=== PATIENT | female | born 1955 | race Caucasian/White ===

== ENCOUNTER 2016-07-25 07:48 | Emergency (ER) | payer OTHER ==
[~2016-07-25] VITALS: Ht 160 cm; Wt 92.1 kg
--- NOTE | 2016-07-25 08:09 | ED HAND/WRIST INJURY COMPLAINT ---
History of Present Illness General Chief Complaint: Hand or Wrist Injury Stated Complaint: LEFT WRIST PAIN S/P FALL Source: patient, family Exam Limitations: no limitations Vital Signs & Intake/Output Vital Signs & Intake/Output Vital Signs Date Time Temp Pulse Resp B/P B/P Pulse O2 O2 Flow FiO2 Mean Ox Delivery Rate 07/25 1135 98 07/25 1058 97.0 84 18 136/66 100 Room Air 07/25 0909 94 144/90 07/25 0904 97.2 82 18 132/77 99 Nasal 4.0L Cannula 07/25 0753 98.0 97 20 109/76 100 Room Air Allergies Coded Allergies: Penicillins (RASH 07/25/16) Sulfa (Sulfonamide Antibiotics) (RASH 07/25/16) Reconcile Medications Ibuprofen 800 MG TABLET 1 TAB PO TID PRN PAIN Lamotrigine 100 MG TABLET 1 TAB PO BID MENTAL HEALTH (Reported) Levothyroxine Sodium (Unknown Strength) TABLET (Unknown Dose) PO DAILY THYROID (Reported) Lisdexamfetamine Dimesylate (Vyvanse) 30 MG CAPSULE 1 CAP PO QAM MENTAL HEALTH (Reported) Lovastatin (Unknown Strength) TABLET (Unknown Dose) PO DAILY CHOLESTEROL ( Reported) Oxycodone HCl/Acetaminophen (Percocet 5-325 MG Tablet) 5 MG-325 MG TABLET 1 TAB PO Q4-6 PRN BREAKTHROUGH PAIN Zolpidem Tartrate (Ambien) 5 MG TABLET 1 TAB PO QPM SLEEP (Reported) Triage Note: PT TO ED C/O LEFT WRIST PAIN S/P TRIP AND FALL AUDIO/VIDEO ENGINEER. STATES SHE WAS MOVING A TREADMILL AND FELL BACKWARDS, HITTING HER PALM ON THE GROUND. DENIES HEADSTRIKE. PT APPEARS VERY ANXIOUS. DECLINING MEDS IN TRIAGE. +CMS, +PULSES. ICE APPLIED. Triage Nurses Notes Reviewed? yes Occurred: just prior to arrival Timing: single episode today Injury Environment: home Severity: severe Pain/Injury Location: Left: Wrist. Method of Injury: fall Modifying Factors: Worsens With: movement. Associated Symptoms: swelling HPI: 60-year-old female history of hypothyroidism sudden onset of left wrist pain after trip and fall at 7:30 this morning. No head trauma or loss of consciousness. Patient claims of severe left wrist pain. Patient noted to have visible deformity. Past History Travel History Traveled to [place] past 21 day No Medical History Any Pertinent Medical History? see below for history Gastrointestinal: GERD Psychiatric: anxiety Endocrine: Ulysses's thyroiditis, hypothyroidism Surgical History Surgical History: non-contributory Psychosocial History What is your primary language Arabic Tobacco Use: Quit >30 days ago ETOH Use: denies use Illicit Drug Use: denies illicit drug use Family History Hx Contributory? No Review of Systems Review of Systems Constitutional: Denies: chills, fever. EENTM: Reports: no symptoms. Respiratory: Denies: cough, short of breath. Cardiovascular: Denies: chest pain, palpitations. GI: Reports: no symptoms. Genitourinary: Reports: no symptoms. Musculoskeletal: Reports: joint pain, joint swelling. Denies: muscle pain, muscle stiffness. Skin: Reports: no symptoms. Neurological/Psychological: Reports: no symptoms. Hematologic/Endocrine: Denies: bruising, bleeding. Immunologic/Allergic: Reports: no symptoms. All Other Systems: Reviewed and Negative Physical Exam Physical Exam General Appearance: well developed/nourished, alert, awake, anxious, mild distress Head: atraumatic Eyes: Bilateral: PERRL, EOMI. Ears, Nose, Throat: normal pharynx, normal ENT inspection, hearing grossly normal Neck: normal inspection, supple Cardiovascular/Respiratory: normal breath sounds, regular rate/rhythm Back: normal inspection Shoulder Left: normal range of motion, normal inspection Shoulder Right: normal range of motion, normal inspection Elbow Left: normal range of motion, normal inspection Elbow Right: normal range of motion, normal inspection Forearm Right: normal range of motion, normal inspection Wrist Left: swelling, tenderness, DEFORMITY Wrist Right: normal range of motion, normal inspection Hand Left: normal inspection, normal range of motion Hand Right: normal inspection, normal range of motion Neurologic/Tendon: normal sensation, normal tendon functions, responds to pain Skin: intact, normal color, warm/dry Lymphatic: no anterior cervical nii Progress Differential Diagnosis: DISTAL ULNA/RADIUS FRACTURE Plan of Care: Orders Procedure Date/time Status Durable Medical Equipment 07/25 909 Active Current Medications Sig/Elijah Start time Last Medication Dose Stop Time Status Admin Insulin Human Regular 6 UNITS ONCE ONE 07/25 111 CAN (NovoLIN R) 07/25 1116 9:50 AM Patient tolerated reduction well. She is now awake alert and oriented. Reduction x-rays pending. Patient much improved. Still complains of moderate amount of pain. Motrin and Percocet ordered. Repeat x-rays pending. X-rays given on disc to the patient to follow-up with her own private doctor. Good neurovascular examination. Rajendra wrap was taken down and rewrap this patient felt slightly tight her fingers. Per prescription and sent to [place] [facility]. (KELVIN CALDERA,OMAR) Diagnostic Imaging: Viewed by Me: Radiology Read. Discussed w/RAD: Radiology Read. Radiology Impression: PATIENT: MARICEL TAVERAS PRESENT AGE: 60 PATIENT ACCOUNT NO: [id number] : 54 LOCATION: [facility] ORDERING PHYSICIAN: OMAR WARREN MD SERVICE DATE: 07/25/16 EXAM TYPE: RAD - XRY-WRIST COMPLETE-LEFT EXAMINATION: XR WRIST, LEFT CLINICAL INFORMATION: Left wrist/distal forearm deformity status post fall COMPARISON: None TECHNIQUE: AP, lateral, and oblique views of the left wrist. FINDINGS: There is a comminuted, impacted, intra-articular distal radial fracture with dorsal tilt of the distal radial articular surface and dorsal displacement and foreshortening of the fracture fragments by 1.4 cm. The styloid process is fractured at its base with distraction/medial displacement by 0.5 cm. There is posttraumatic ulnar positive variance. 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 Soft tissues are swollen. IMPRESSION: Comminuted, dorsally impacted, intra-articular distal radial fracture Displaced fracture through the base of the ulnar styloid DICTATED BY: DARIUS NAZARIO MD DATE/TIME DICTATED:07/25/16837 ADMINISTRATIVE VOLUNTEER:DELMY DATE/TIME TRANSCRIBED:07/25/16837 CONFIDENTIAL, DO NOT COPY WITHOUT APPROPRIATE AUTHORIZATION. <Electronically signed in Other Vendor System> SIGNED BY: DARIUS NAZARIO MD 07/25/16843, PATIENT: MARICEL TAVERAS PRESENT AGE: 60 PATIENT ACCOUNT NO: [id number] : 54 LOCATION: [facility] ORDERING PHYSICIAN: OMAR WARREN MD SERVICE DATE: 07/25/16 EXAM TYPE: RAD - XRY-ELBOW AP & LATERAL , LEFT; XRY-SHOULDER COMPLETE-LEFT; XRY-WRIST 2 VIEWS LEFT EXAMINATION: XR SHOULDER, LEFT XR ELBOW, LEFT XR WRIST, LEFT CLINICAL INFORMATION: Status post fall. Rule out shoulder and elbow fracture. Status post reduction of the left wrist fracture. COMPARISON: Wrist radiographs from the same date at 8:13 AM TECHNIQUE: Three views of the left shoulder. AP, lateral, and oblique views of the left wrist. AP, lateral, and both oblique views of the left elbow FINDINGS: Left shoulder: There is mild acromioclavicular and glenohumeral osteoarthritis. No fracture. Alignment is anatomic. Soft tissues are normal with no abnormal calcifications. Bones are osteopenic. Left elbow: Fiberglass splint material is in place. No fracture or malalignment. Small marginal osteophytes are present at the elbow. No joint effusion. Bones are osteopenic. Soft tissues are unremarkable. Left wrist: There is improved alignment of the comminuted intra- articular distal radial fracture with decreased dorsal impaction of the fracture fragments, now with 0.8 cm of foreshortening. There is persistent dorsal tilt of the distal articular fracture fragments as well as ulnar positive variance. Transitional fractures of the ulnar styloid base is unchanged. Moderate degenerative arthritis is again seen at the first CMC joint. Splint material is in place. IMPRESSION: 1. No fracture or malalignment of the left shoulder and left elbow. 2. Improved alignment of the comminuted intra-articular distal radial fracture with persistent dorsal tilt of the distal articular surface as well as foreshortening and dorsal displacement of the distal fracture fragments. 3. Unchanged transverse fracture of the ulnar styloid base. DICTATED BY: DARIUS NAZARIO MD DATE/TIME DICTATED:07/25/161107 ADMINISTRATIVE VOLUNTEER:DELMY DATE/TIME TRANSCRIBED:07/25/161107 CONFIDENTIAL, DO NOT COPY WITHOUT APPROPRIATE AUTHORIZATION. <Electronically signed in Other Vendor System> SIGNED BY: DARIUS NAZARIO MD 07/25/16 1116 Rhythm Strip: normal sinus rhythm Departure Departure Disposition: HOME OR SELF CARE Condition: Stable Clinical Impression Primary Impression: Radius and ulna distal fracture Referrals: ANDREW CALDERA,NIRAJ HI MD,WING Martinez (PCP/Family) Additional Instructions: Take the ibuprofen and Percocet as directed. Do not drive with Percocet. Given [id number] stool softeners. Follow-up with your orthopedic doctor in the office. Please take a copy of all the x-rays to the office. Departure Forms: Customer Survey General Discharge Information Prescriptions: Current Visit Scripts Ibuprofen 1 TAB PO TID PRN PAIN #30 TAB Oxycodone HCl/Acetaminophen (Percocet 5-325 MG Tablet) 1 TAB PO Q4-6 PRN BREAKTHROUGH PAIN #20 TAB Procedures Additional Procedures Additional Procedures: CLOSED REDUCTION Critical Care Note Critical Care Note Critical Care Time: 75-104 min
[2016-07-25] MEDS ORDERED: LAMOTRIGINE100 M2 PO (08:17)
[2016-07-25] MEDS ORDERED: VYVANSE30 M1 PO (08:17)
[2016-07-25] MEDS ORDERED: LEVOTHYROXINE75 MCG PO (08:17)
[2016-07-25] MEDS ORDERED: AMBIEN5 M1 PO (08:18)
[2016-07-25] MEDS ORDERED: LOVASTATIN20 M1 PO (08:18)
--- NOTE | 2016-07-25 08:44 | RADIOLOGY REPORT ---
EXAMINATION: XR WRIST, LEFT CLINICAL INFORMATION: Left wrist/distal forearm deformity status post fall COMPARISON: None TECHNIQUE: AP, lateral, and oblique views of the left wrist. FINDINGS: There is a comminuted, impacted, intra-articular distal radial fracture with dorsal tilt of the distal radial articular surface and dorsal displacement and foreshortening of the fracture fragments by 1.4 cm. The styloid process is fractured at its base with distraction/medial displacement by 0.5 cm. There is posttraumatic ulnar positive variance. 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 Soft tissues are swollen. IMPRESSION: Comminuted, dorsally impacted, intra-articular distal radial fracture Displaced fracture through the base of the ulnar styloid
[2016-07-25] MEDS ORDERED: PERCOCET 5-3251 EACH PO (10:54)
[2016-07-25] MEDS ORDERED: IBUPROFEN800 M1 PO (10:54)
[2016-07-25 10:58] VITALS: BP 136/66
--- NOTE | 2016-07-25 11:16 | RADIOLOGY REPORT ---
EXAMINATION: XR SHOULDER, LEFT XR ELBOW, LEFT XR WRIST, LEFT CLINICAL INFORMATION: Status post fall. Rule out shoulder and elbow fracture. Status post reduction of the left wrist fracture. COMPARISON: Wrist radiographs from the same date at 8:13 AM TECHNIQUE: Three views of the left shoulder. AP, lateral, and oblique views of the left wrist. AP, lateral, and both oblique views of the left elbow FINDINGS: Left shoulder: There is mild acromioclavicular and glenohumeral osteoarthritis. No fracture. Alignment is anatomic. Soft tissues are normal with no abnormal calcifications. Bones are osteopenic. Left elbow: Fiberglass splint material is in place. No fracture or malalignment. Small marginal osteophytes are present at the elbow. No joint effusion. Bones are osteopenic. Soft tissues are unremarkable. Left wrist: There is improved alignment of the comminuted intra-articular distal radial fracture with decreased dorsal impaction of the fracture fragments, now with 0.8 cm of foreshortening. There is persistent dorsal tilt of the distal articular fracture fragments as well as ulnar positive variance. Transitional fractures of the ulnar styloid base is unchanged. Moderate degenerative arthritis is again seen at the first CMC joint. Splint material is in place. IMPRESSION: 1. No fracture or malalignment of the left shoulder and left elbow. 2. Improved alignment of the comminuted intra-articular distal radial fracture with persistent dorsal tilt of the distal articular surface as well as foreshortening and dorsal displacement of the distal fracture fragments. 3. Unchanged transverse fracture of the ulnar styloid base.
== END 2016-07-25 11:30 ==
LOC: ERH 07:48
DX: S52.572A Other intraarticular fracture of lower end of left radius, initial encounter for closed fracture (principal); S52.612A Displaced fracture of left ulna styloid process, initial encounter for closed fracture; W01.0XXA Fall on same level from slipping, tripping and stumbling without subsequent striking against object, initial encounter; Y93.89 Activity, other specified; Y92.009 Unspecified place in unspecified non-institutional (private) residence as the place of occurrence of the external cause
CPT/HCPCS: 73030-LT; 73070-LT; 73100-LT; 73110-LT; 96372; 96374; 96375; J3360